=== PATIENT | male | born 1995 | race African-American/Black ===

== ENCOUNTER 2017-03-19 11:39 | Emergency (ER) | payer OTHER ==
[~2017-03-19] VITALS: Ht 175.3 cm; Wt 60.9 kg
[2017-03-19 11:42] VITALS: Ht 175.3 cm; Wt 60.9 kg
[2017-03-19] MEDS ORDERED: ACETAMINOPHEN 500 MG TAB PO ONE (11:53)
[2017-03-19] MEDS ORDERED: VNTHFA/IN INH (11:54)
[2017-03-19] MEDS ORDERED: KETOROLAC TROMETHAMINE 30 MG/ML VIAL IV STA (12:27)
[2017-03-19] MEDS ORDERED: SODIUM CHLORIDE 0.9% 1000ML 1,000 ML IV ONE (12:27)
[2017-03-19] MEDS ORDERED: SODIUM CHLORIDE 0.9% 1000ML 1,000 ML IV STA (12:27)
[2017-03-19] MEDS ORDERED: ONDANSETRON INJ 2 MG/ML 2 ML VIAL IV STA (12:27)
--- NOTE | 2017-03-19 12:37 | EMERGENCY ROOM VISIT NOTE ---
History Report prepared by Brit: Marito Sanders Under the Supervision of: Dr. Landon Barrera M.D. First contact with patient: 12:20 Chief Complaint: FLU LIKE SX Stated Complaint: DIARRHEA, VOMITING, CHILLS, WEAKNESS History of Present Illness The patient is a 22 year old male who presents to the Emergency Room with complaints of persistent vomiting and diarrhea starting yesterday. The patient states that two days ago he had [employer] with pork sausage, and he states that he does not usually have a problem with eating this. He notes that he started to get diarrhea and vomiting yesterday which has continued into today, and he states that he now has the chills, fever, headache, some body aches, and he states that his abdomen feels "bubbly". The patient reports that he has had a cough, and yesterday he coughed up some phlegm. The patient denies any sore throat and recent travel. The patient has a history of asthma. Source of History: patient Onset: yesterday Position: other (global) Quality: other (vomiting and diarrhea) Timing: other (persistent) Associated Symptoms: + fevers, + chills, + headache, + cough, No sorethroat Note: Associated symptoms: Body aches Review of Systems See HPI for pertinent positives & negatives. A total of 10 systems reviewed and were otherwise negative. Past Medical & Surgical Medical Problems: (1) Asthma Old medical records were reviewed. Nurse's notes were reviewed and I agree with. Social History Smoking Status: Never Smoker Marital Status: single Housing Status: lives with roommate Occupation Status: [employer] Current/Historical Medications Scheduled PRN Albuterol Hfa (Ventolin Hfa), 2-4 PUFFS INH Q6H PRN for Shortness of Breath Allergies Coded Allergies: No Known Allergies (Unverified , 03/19/17) Physical Exam Vital Signs Date Time Temp Pulse Resp B/P (MAP) Pulse Ox O2 Delivery O2 Flow Rate FiO2 03/19/17 13:58 37.4 89 20 114/60 97 03/19/17 13:12 38.4 03/19/17 13:09 94 20 99 03/19/17 13:00 105/59 03/19/17 12:39 106 14 97 03/19/17 12:30 98/64 03/19/17 12:09 110 11 98 03/19/17 12:04 116 03/19/17 12:00 112/66 03/19/17 12:00 112 20 115/76 98 03/19/17 11:56 115/76 03/19/17 11:42 39.4 144 18 111/65 96 Room Air Physical Exam General: Non-ill appearing, non-toxic young male in no acute distress. HEENT: Normal cephalic atraumatic. Pupils are equal round and reactive to light. Extraocular movements are intact. Oropharynx is pink with moist mucous membranes. No swelling of the mouth lips or tongue. Neck: Supple with a midline trachea. No meningeal signs or stiffness, no JVD or bruits. No Stridor. Chest: Clear to auscultation bilaterally. No wheezes or rhonchi. No increased work of breathing. Heart: regular rate and rhythm. Abdomen: Soft nontender, nondistended without rebound guarding or rigidity. Extremities: No cyanosis clubbing or edema. No calf tenderness or assymetry Spine/Back. Non tender to palpation. No CVA tenderness Skin: Good turgor without rashes. Neurologic exam: Cranial nerves two through 12 are intact. Motor and sensation are intact and symmetrical throughout. Medical Decision & Procedures ER Provider Diagnostic Interpretation: Radiology results as stated below per my review and radiologist interpretation: CHEST ONE VIEW PORTABLE HISTORY: 22 years-old Male CHEST PAIN acute atypical chest pain COMPARISON: None available TECHNIQUE: Portable AP view of the chest FINDINGS: Cardiomediastinal and hilar silhouettes are within normal limits. There is no pneumothorax, pleural effusion, focal airspace consolidation or overt pulmonary edema. Bones of the chest appear grossly intact. IMPRESSION: No acute process of the chest. The above report was generated using voice recognition software. It may contain grammatical, syntax or spelling errors. Electronically signed by: Nicho Rosario M.D. 03/19/2017 1:18 PM Dictated Date/Time: 03/19/2017 1:17 PM Laboratory Results 03/19/17 12:45 Red Blood Count 5.12, Mean Corpuscular Volume 89.5, Mean Corpuscular Hemoglobin 31.4, Mean Corpuscular Hemoglobin Concent 35.2, Mean Platelet Volume 10.3, Neutrophils (%) (Auto) 78.4, Lymphocytes (%) (Auto) 6.2, Monocytes (%) (Auto) 14.8, Eosinophils (%) (Auto) 0.3, Basophils (%) (Auto) 0.1, Neutrophils # (Auto ) 6.98, Lymphocytes # (Auto) 0.55, Monocytes # (Auto) 1.32, Eosinophils # (Auto ) 0.03, Basophils # (Auto) 0.01 03/19/17 12:45 Test 03/19/17 12:45 White Blood Count 8.91 K/uL (4.8-10.8) Red Blood Count 5.12 M/uL (4.7-6.1) Hemoglobin 16.1 g/dL (14.0-18.0) Hematocrit 45.8 % (42-52) Mean Corpuscular Volume 89.5 fL (80-100) Mean Corpuscular Hemoglobin 31.4 pg (25-34) Mean Corpuscular Hemoglobin Concent 35.2 g/dl (32-36) Platelet Count 294 K/uL (130-400) Mean Platelet Volume 10.3 fL (7.4-10.4) Neutrophils (%) (Auto) 78.4 % Lymphocytes (%) (Auto) 6.2 % Monocytes (%) (Auto) 14.8 % Eosinophils (%) (Auto) 0.3 % Basophils (%) (Auto) 0.1 % Neutrophils # (Auto) 6.98 K/uL (1.4-6.5) Lymphocytes # (Auto) 0.55 K/uL (1.2-3.4) Monocytes # (Auto) 1.32 K/uL (0.11-0.59) Eosinophils # (Auto) 0.03 K/uL (0-0.5) Basophils # (Auto) 0.01 K/uL (0-0.2) RDW Standard Deviation 39.9 fL (36.4-46.3) RDW Coefficient of Variation 12.2 % (11.5-14.5) Immature Granulocyte % (Auto) 0.2 % Immature Granulocyte # (Auto) 0.02 K/uL (0.00-0.02) Anion Gap 7.0 mmol/L (3-11) Est Creatinine Clear Calc Drug Dose 78.0 ml/min Estimated GFR () 91.5 Estimated GFR (Non- 78.9 BUN/Creatinine Ratio 20.1 (10-20) Calcium Level 8.7 mg/dl (8.5-10.1) Total Bilirubin 1.4 mg/dl (0.2-1) Direct Bilirubin 0.2 mg/dl (0-0.2) Aspartate Amino Transf (AST/SGOT) 19 U/L (15-37) Alanine Aminotransferase (ALT/SGPT) 19 U/L (12-78) Alkaline Phosphatase 86 U/L (45-117) Total Protein 7.5 gm/dl (6.4-8.2) Albumin 3.8 gm/dl (3.4-5.0) Lipase 88 U/L (73-393) Influenza Type A Antigen Neg for Influ A (NEG) Influenza Type B Antigen Neg for Influ B (NEG) Laboratory studies as stated above per my review. Medications Administered Medications (Trade) Dose Ordered Sig/[place] Route Start Time Stop Time Status Last Admin Dose Admin Acetaminophen (Tylenol Tab) 1,000 mg STK-MED ONCE PO 03/19/17 11:53 03/19/17 11:54 DC 03/19/17 11:53 1,000 MG Sodium Chloride 1,000 ml @ 999 mls/hr Q1H1M STAT IV 03/19/17 12:27 03/19/17 13:27 DC 03/19/17 12:41 999 MLS/HR Sodium Chloride 1,000 ml @ 200 mls/hr Q5H ONCE IV 03/19/17 12:27 03/19/17 15:07 DC 03/19/17 13:58 200 MLS/HR Ondansetron HCl (Zofran Inj) 4 mg NOW STAT IV 03/19/17 12:27 03/19/17 12:28 DC 03/19/17 12:41 4 MG Ketorolac Tromethamine (Toradol Inj) 30 mg NOW STAT IV 03/19/17 12:27 03/19/17 12:29 DC 03/19/17 12:43 30 MG Ondansetron HCl (ZOFRAN ODT 4MG Home Pack) 1 homepack UD ONCE PO 03/19/17 14:15 03/19/17 14:16 DC 03/19/17 14:24 1 HOMEPACK ED Course 1153: Tylenol Tab 1000mg PO 1220: Past medical records reviewed. The patient was evaluated in room B12, and a complete history and physical examination were performed. 1227: Toradol 30mg IV, Zofran 4mg IV, Sodium Chloride 1000 ml @ 200 mls/hr IV, Sodium Chloride 1000 ml @ 999 mls/hr IV 1342: I reevaluated the patient, and he was feeling better. 1414: Upon reevaluation, the patient is doing well. I discussed the results and treatment plan with him. He verbalized agreement of the treatment plan. The patient was discharged home. 1415: Zofran ODT 4mg Home Pack PO Medical Decision Differentials include, but are not limited to; gastroenteritis, viral illness, influenza, dehydration, infection, electrolyte or metabolic abnormality. This patient comes in as described above. he's had nausea vomiting diarrhea as well as a fever. he looks well on exam. He has had some myalgias. No respiratory symptoms the last day or so. He denies any significant headache. He is nontoxic and non-lethargic appearing. he has nothing to suggest meningitis or encephalitis. IV access established was hydrated with IV normal saline. He was given Tylenol and his temperature came down he was also given Zofran IV. He has no significant electrolyte or metabolic abnormalities. Influenza swab was negative. Chest x-ray was unremarkable. His abdomen has remained benign and nontender and there is nothing to suggest acute intra- abdominal process. I think most likely this is a viral gastroenteritis type picture. He is to rest and drink plenty of fluids use [id number] Imodium. He was given a prescription for Zofran that he can use if needed for nausea. He was told to return to ER if: Worsening of symptoms, abdominal pain, any new problems or concerns. Follow-up with regular doctor in 1-2 days for recheck if not better or return to ER any point if symptoms worsen. Medication Reconcilliation Current Medication List: was personally reviewed by me Blood Pressure Screening Patient's blood pressure: Normal blood pressure Impression Primary Impression: Dehydration Additional Impressions: Febrile illness Acute gastroenteritis Scribe Attestation The scribe's documentation has been prepared under my direction and personally reviewed by me in its entirety. I confirm that the note above accurately reflects all work, treatment, procedures, and medical decision making performed by me. Departure Information Dispostion Home / Self-Care Forms HOME CARE DOCUMENTATION FORM, IMPORTANT VISIT INFORMATION Patient Instructions My [facility] Additional Instructions Rest. Drink plenty of fluids. Mild diet. May use Zofran for nausea every 6 hours For diarrhea may use [id number] Imodium but do not exceed the over-the- counter dosing regimen May use acetaminophen/Tylenol maximum of 650 mg every 6 hours as needed for fever or aches Return to the ER if: Worsening of symptoms, not tolerating fluids, abdominal pain, any new problems or concerns. Problem Qualifiers
[2017-03-19 13:12] LABS: BASO % 0.1 %; BASO ABS # 0.01 K/uL (0-0.2); EOS % 0.3 %; EOS ABS # 0.03 K/uL (0-0.5); HEMATOCRIT 45.8 % (42-52); HEMOGLOBIN 16.1 g/dL (14.0-18.0); IG# 0.02 K/uL (0.00-0.02); LYMPH % 6.2 %; LYMPH ABS # 0.55 K/uL (1.2-3.4); MEAN CELL VOLUME 89.5 fL (80-100); MEAN CORPUSCULAR HEMOGLOBIN 31.4 pg (25-34); MEAN CORPUSCULAR HGB CONC 35.2 g/dl (32-36); MEAN PLATELET VOLUME 10.3 fL (7.4-10.4); MONO % 14.8 %; MONO ABS # 1.32 K/uL (0.11-0.59); NEUT % 78.4 %; NEUT ABS # 6.98 K/uL (1.4-6.5); PLATELET COUNT 294 K/uL (130-400); RED CELL DISTRIBUTION WIDTH CV 12.2 % (11.5-14.5); RED CELL DISTRIBUTION WIDTH SD 39.9 fL (36.4-46.3); WHITE BLOOD COUNT 8.91 K/uL (4.8-10.8)
--- NOTE | 2017-03-19 13:19 | DIAGNOSTIC IMAGING REPORT ---
CHEST ONE VIEW PORTABLE HISTORY: 22 years-old Male CHEST PAIN acute atypical chest pain COMPARISON: None available TECHNIQUE: Portable AP view of the chest FINDINGS: Cardiomediastinal and hilar silhouettes are within normal limits. There is no pneumothorax, pleural effusion, focal airspace consolidation or overt pulmonary edema. Bones of the chest appear grossly intact. IMPRESSION: No acute process of the chest. The above report was generated using voice recognition software. It may contain grammatical, syntax or spelling errors. Electronically signed by: Nicho Rosario M.D. 03/19/2017 1:18 PM Dictated Date/Time: 03/19/2017 1:17 PM
[2017-03-19 13:21] LABS: ALBUMIN 3.8 gm/dl (3.4-5.0); CALCIUM 8.7 mg/dl (8.5-10.1); CREATININE 1.28 mg/dl (0.60-1.40)
[2017-03-19 13:24] LABS: TOTAL PROTEIN 7.5 gm/dl (6.4-8.2)
[2017-03-19 13:39] LABS: INFLUENZA B ANTIGEN Neg for Influ B (NEG)
[2017-03-19 13:58] VITALS: BP 114/60; PULSE 89; TEMP 37.4; O2SAT 97
[2017-03-19] MEDS ORDERED: ONDANSETRON HOME PACK 4MG OD TAB PO ONE (14:15)
== END 2017-03-19 14:32 | disposition home or self-care (01) ==
LOC: C.EDB 11:43
DX: E86.0 Dehydration (principal); R50.9 Fever, unspecified; K52.9 Noninfective gastroenteritis and colitis, unspecified; J45.909 Unspecified asthma, uncomplicated